=== PATIENT | male | born 1995 | race Hispanic/Latino ===

== ENCOUNTER 2021-09-13 15:16 | Emergency (ER) | payer BC ==
[~2021-09-13] VITALS: Ht 180.3 cm; Wt 108.9 kg
[2021-09-13 15:36] VITALS: BP 156/81
[2021-09-13 15:49] VITALS: BP 156/81
--- NOTE | 2021-09-13 15:54 | NUR ---
Ambulatory ED rm7. A/Ox4. c/o cough, congestion, fatique, bodyaches, nausea, sore throat. Rates generalized bodyache pain as 3/10 described as aching.
[2021-09-13 16:11] VITALS: BP 142/86
--- NOTE | 2021-09-13 16:15 | ER.PDOC ---
General Chief Complaint: Cough/Congestion Stated Complaint: FATIGUE,COUGH,BODYACHE,RUNNY NOSE Time seen by MD: 16:12 Source: patient Exam Limitations: no limitations History of Present Illness Initial Comments Cough, congestion, body aches and fatigue for 3 days. No fever or chills. Timing/Duration: gradual Severity: moderate Associated Symptoms: runny nose, sore throat, cough Allergies: Coded Allergies: No Known Allergies (Unverified , 09/13/21) Constitutional: no symptoms reported EENTM: see HPI Respiratory: see HPI Cardiovascular: no symptoms reported Gastrointestinal: no symptoms reported All Other Systems: Reviewed and Negative Past Medical History Medical History: no pertinent history Surgical History: no surgical history Social History Alcohol Use: none Drug Use: none Physical Exam General Appearance: alert, no distress Eye: eyes nml inspection Nose: nose nml Throat: pharynx nml, airway nml Neck: nml inspection, supple Respiratory: no resp.distress, breath sounds nml Abdomen: non-tender, no organomegaly CVS: reg rate & rhythm, heart sounds nml Skin: color nml, no rash, warm/dry Extremities: non-tender, nml ROM, no pedal edema NEURO/PSYCH: oriented x 3, CN's nml as tested, motor nml, sensation nml, mood/affect nml Results/Orders Results/Orders Orders - SHABNAM KNOTT MD Strep Screen (09/13/21 15:18) Covid19 Antigen Adriana Elvira (09/13/21 15:18) Influenza A&B (09/13/21 15:21) Vital Signs Date Time Temp Pulse Resp B/P (MAP) Pulse Ox O2 Delivery O2 Flow Rate FiO2 09/13/21 15:49 98.9 130 20 09/13/21 15:49 98.9 130 20 156/81 (106) 97 Room Air* 0 21 09/13/21 15:36 98.9 130 20 97 Laboratory Tests Test 09/13/21 15:26 Influenza Type A Antigen NEGATIVE (NEG) Influenza Type B Antigen NEGATIVE (NEG) SARS-CoV-2 Antigen (Rapid) NEGATIVE (NEGATIVE) Group A Streptococcus Screen NEGATIVE (NEGATIVE) Progress Progress Patient is heart rate came down to the 80s. Blood pressure is okay. He is negative for flu, strep and COVID. ER DEPART Departure Time of Disposition: 16:14 Disposition: 01 HOME / SELF CARE / HOMELESS Impression: Primary Impression: Acute respiratory infection Condition: Stable Referrals: PCP,UNKNOWN (PCP) PRIMARY CARE PROVIDER Additional Instructions: Mucinex DM [id number] as directed Follow-up with your PCP in 1 week Return to ED if worsening symptoms or concerns Duration or Time Spent with Pa: 10 min SHABNAM KNOTT MD Sep 13, 2021 16:14
== END 2021-09-13 16:08 | disposition home or self-care (01) ==
LOC: ER 15:16
DX: J06.9 Acute upper respiratory infection, unspecified (principal); Z20.822 Contact with and (suspected) exposure to COVID-19; R53.83 Other fatigue
CPT/HCPCS: 87070; 87426; 87804; 87880; 99283